=== PATIENT | female | born 1975 | race Caucasian/White ===

== ENCOUNTER 2019-11-16 07:00 | Outpatient (CLI) | payer MEDICAID ==
[2019-11-17 21:52] LABS: TRICHOMONAS VAGINALIS DNA NEGATIVE (NEGATIVE)
[2019-11-18 01:53] LABS: CANDIDA GROUP DNA NEGATIVE (NEGATIVE); CANDIDA KRUSEI DNA NEGATIVE (NEGATIVE); TRICHOMONAS VAGINALIS DNA NEGATIVE (NEGATIVE)
== END 2019-11-16 23:59 | disposition home or self-care (01) ==
LOC: LAB.R 07:00
PROVIDERS: ATTEND Advanced Practice Midwife
DX: Z01.419 Encounter for gynecological examination (general) (routine) without abnormal findings (principal); Z11.3 Encounter for screening for infections with a predominantly sexual mode of transmission; N76.0 Acute vaginitis
CPT/HCPCS: 87491; 87591; 87661; 87801

== ENCOUNTER 2020-01-01 09:14 | Outpatient (CLI) | payer MEDICAID ==
--- NOTE | 2020-01-05 09:41 | Mammography Report ---
BILATERAL DIGITAL SCREENING MAMMOGRAM 3D/2D: 01/01/2020 CLINICAL: Routine screening. Baseline exam. No prior exams were available for comparison. The tissue of both breasts is heterogeneously dense. T his may lower the sensitivity of mammography. No significant masses, calcifications, or other findings are seen in either breast. IMPRESSION: NEGATIVE There is no mammographic evidence of malignancy. A 1 year screening mammogram is recommended. This exam was interpreted at Station ID: [id number]. NOTE: For mammograms, a report in lay terms will be sent to the patient. Approximately 15% of breast malignancies will not be visualized mammographically. In the management of a palpable breast mass, a negative mammogram must not discourage biopsy of a clinically suspicious lesion. Electronically Signed By: Sam Robert M.D., jr/kevyn:01/01/2020 10:10:41 ACR BI-RADS Category 1: Negative 3341F PARENCHYMAL PATTERN: (D) - The breast(s) demonstrate(s) heterogeneously dense fibroglandular ruchi hidalgo. BI-RADS CATEGORY: (1) - 1 RECOMMENDATION: (ANNUAL) - Recommend routine annual screening mammography. 20210101 1 year screening LATERALITY: (B)
== END 2020-01-01 09:15 | disposition home or self-care (01) ==
LOC: DI 09:14
PROVIDERS: ATTEND Advanced Practice Midwife
DX: Z12.31 Encounter for screening mammogram for malignant neoplasm of breast (principal)
CPT/HCPCS: 77063; 77067

== ENCOUNTER 2020-10-28 08:00 | Outpatient (CLI) | payer MEDICAID | END 2020-10-28 23:59 | disposition home or self-care (01) | LOC: LAB.N 08:00 | PROVIDERS: ATTEND Family Medicine | DX: R07.0 Pain in throat (principal) | CPT/HCPCS: 87070; 87077 ==

== ENCOUNTER 2021-03-10 07:00 | Outpatient (CLI) | payer MEDICAID ==
[2021-03-10 19:14] LABS: BACTERIAL VAGINOSIS DNA POSITIVE (NEGATIVE); CANDIDA GLABRATA DNA NEGATIVE (NEGATIVE); CANDIDA GROUP DNA NEGATIVE (NEGATIVE); CANDIDA KRUSEI DNA NEGATIVE (NEGATIVE); TRICHOMONAS VAGINALIS DNA NEGATIVE (NEGATIVE)
[2021-03-10 20:09] LABS: CHLAMYDIA TRACHOMATIS DNA NEGATIVE (NEGATIVE); NEISSERIA GONORRHOEAE DNA NEGATIVE (NEGATIVE); TRICHOMONAS VAGINALIS DNA NEGATIVE (NEGATIVE)
== END 2021-03-10 23:59 | disposition home or self-care (01) ==
LOC: LAB 07:00
PROVIDERS: ATTEND Nurse Practitioner Obstetrics & Gynecology
DX: N89.8 Other specified noninflammatory disorders of vagina (principal); Z11.3 Encounter for screening for infections with a predominantly sexual mode of transmission
CPT/HCPCS: 87491; 87591; 87661; 87801

== ENCOUNTER 2022-06-07 11:30 | Outpatient (CLI) | payer MEDICAID | END 2022-06-07 23:59 | disposition home or self-care (01) | LOC: LAB 11:30 | PROVIDERS: ATTEND Nurse Practitioner | DX: N64.52 Nipple discharge (principal) | CPT/HCPCS: 36415; 84146; 84439; 84443; 87070; 87077; 87205 ==

== ENCOUNTER 2022-06-07 11:44 | Outpatient (CLI) | payer MEDICAID ==
[2022-06-07 12:22] LABS: THYROID STIMULATING HORMONE 1.5 uIU/mL (0.34-5.60)
[2022-06-07 12:24] LABS: FREE T4 (FREE THYROXINE) 0.83 ng/dL (0.58-1.64)
[2022-06-07 12:28] LABS: PROLACTIN 14.97 ng/mL
== END 2022-06-07 11:45 | disposition home or self-care (01) ==
LOC: LAB 11:44
PROVIDERS: ATTEND Nurse Practitioner
DX: N64.52 Nipple discharge (principal)
CPT/HCPCS: 36415; 84146; 84439; 84443

== ENCOUNTER 2022-06-27 10:04 | Outpatient (CLI) | payer MEDICAID ==
--- NOTE | 2022-06-28 16:59 | Mammography Report ---
BILATERAL DIGITAL DIAGNOSTIC MAMMOGRAM 3D/2D: 06/27/2022 CLINICAL: Nipple discharge, both breasts, not bloody. Palpable right breast lump. Comparison is made to exam dated: 01/01/2020 mammogram - [facility]. Both breasts are extremely dense, which lowers the sensitivity of mammography (category d />75% gland ular tissue). No significant masses, calcifications, or other findings are seen in either breast. IMPRESSION: INCOMPLETE: NEEDS ADDITIONAL IMAGING EVALUATION No mammographic evidence of malignancy. A targeted ultrasound of the right breast palpable abnormality is recommended and will immediately fo llow. Patient reports bilateral greenish nipple discharge which is typically benign. Clinical follow-up as needed. Based on Tyrer-Cuzick model (a risk assessment model), the patient's lifetime risk is 21.4% and her 1 0 year risk is 4.1%. If a patient has an elevated risk, a more comprehensive evaluation should be con sidered and/or a referral to a genetic counselor. The [place] [employer], [employer] [employer], and NCCN Guidelines advise the consideration of Breast MRI as an adjunct to screening mammog sujatha in patients whose "Lifetime risk to develop breast cancer" is 20% or higher. This exam was interpreted at Station ID: [id number]. NOTE: For mammograms, a report in lay terms will be sent to the patient. Approximately 15% of breast malignancies will not be visualized mammographically. In the management of a palpable breast mass, a negative mammogram must not discourage biopsy of a clinically suspicious lesion. Electronically Signed By: Mike Segura M.D. slc/:06/27/2022 10:44:38 ACR BI-RADS Category 0: Incomplete 3340F PARENCHYMAL PATTERN: (VD) - The breast(s) demonstrate(s) extremely dense parenchyma, limiting the sen sitivity of mammography. BI-RADS CATEGORY: (0) - 0 Ultrasound [id number] Immediate follow-up LATERALITY: (B)
--- NOTE | 2022-06-28 16:59 | Ultrasound Report ---
LIMITED ULTRASOUND OF RIGHT BREAST: 06/27/2022 CLINICAL: Palpable right breast lump. Comparison is made to exams dated: 06/27/2022 mammogram and 01/01/2020 mammogram - [facility]. Real-time ultrasound of the right breast 10-11 o'clock region was performed. López scale images of th e real-time examination were reviewed. No significant abnormalities were seen sonographically in the right breast in the region of the palpa ble abnormality. IMPRESSION: NEGATIVE There is no sonographic evidence of malignancy. No mass at the palpable abnormality. Exam findings were conveyed to the patient. Patient is advised to monitor for significant change. Cli nical follow-up as needed. A 1 year screening mammogram is recommended. This exam was interpreted at Station ID: [id number]. Electronically Signed By: Mike Segura M.D. slc/:06/27/2022 11:05:48 Ultrasound BI-RADS: 1 Negative BI-RADS CATEGORY: (1) - 1 Mammogram [id number] 1 year screening LATERALITY: (B)
== END 2022-06-27 10:05 | disposition home or self-care (01) ==
LOC: DI 10:04
PROVIDERS: ATTEND Nurse Practitioner
DX: N64.52 Nipple discharge (principal); N63.10 Unspecified lump in the right breast, unspecified quadrant

== ENCOUNTER 2023-02-05 14:48 | Emergency (ER) | payer MEDICAID ==
[2023-02-05 15:12] VITALS: BP 124/80; O2SAT 98
--- NOTE | 2023-02-05 15:59 | ED Physician Documentation ---
PD HPI UPPER EXT INJURY - Stated complaint Stated Complaint: LT HAND LAC - Chief complaint Chief Complaint: Laceration - History obtained from History obtained from: Patient - Additonal information Additional information: Patient is a 47-year-old female with a laceration to her left hand between the first and second digits. Patient was using a chisel To get a piece of candy out of a small candy container when she intently stabbed her cell. Her tetanus is up-to-date as of 2 years ago. Does not take a blood thinner. Review of Systems Skin: reports: Laceration (s) PD PAST MEDICAL HISTORY - Past Surgical History Past Surgical History: No - Present Medications Home Medications: Ambulatory Orders Medication Instructions Recorded Confirmed Azithromycin [Zithromax] 250 mg PO DAILY #4 tablet 03/22/15 guaiFENesin/CODEINE [Robitussin AC] 5 - 10 ml PO Q6H PRN #120 ml 03/22/15 - Allergies Allergies/Adverse Reactions: Allergies Allergy/AdvReac Type Severity Reaction Status Date / Time ampicillin Allergy Rash Verified 03/22/15 03:00 - Social History Does the pt smoke?: Yes Smoking Status: Current every day smoker Does the pt drink ETOH?: Yes Does the pt have substance abuse?: No - Immunizations Immunizations are current?: Yes PD ED PE NORMAL - General General: Alert and oriented X 3, No acute distress, Well developed/nourished - HEENT HEENT: Atraumatic, Moist mucous membranes, Pharynx benign - Neck Neck: Supple, no meningeal sign - Cardiac Cardiac: Strong equal pulses - Extremities Extremities: Other (1 and half centimeter laceration to interdigit space between first and second digits of left hand, normal range of motion at all joints, no swelling) PD ED PE EXPANDED - Extremities GARETH UE/Hands Visual: 1 - laceration Results - Vitals Vitals: Vital Signs - 24 hr 02/05/23 14:56 Temperature 37.4 C Heart Rate 81 Respiratory 18 Rate Blood Pressure 124/80 O2 Saturation 98 Oxygen O2 Source Room air Procedures - Laceration (location) L hand Length in cm: 2 Wound type: Linear, Clean Neurovascular status: Sensory intact, Motor intact, Vascular intact Tendon involvement: Tendon intact Anesthesia: Lidocaine 1% Wound preparation: Hibiclens, Irrigated copiously NS Skin layer closure: Size #-0 - enter number (4-0), Sutures - enter # (3) Other: Patient tolerated well, No complications, Neurovascular intact, Dressing applied, Tetanus UTD PD Medical Decision Making - ED course ED course: Patient with laceration to left hand between first and second digits. Neurovascular intact with no signs of tendon injury. Her tetanus is up-to-date. Wound was irrigated and closed with 3 sutures which patient tolerated well. She is counseled on need to return for suture removal as well as concerning symptoms to return for. No signs of foreign body. Departure - Departure Disposition: 01 Home, Self Care Clinical Impression: Laceration of left hand Condition: Stable Instructions: ED Laceration Ext Sutr Stap Tape Comments: Come back for any signs of infection which would include: Redness, swelling, drainage, increased pain, or fevers. You can wash it soap and water. Keep it covered and moist with bacitracin ointment which is available over the counter; avoid neosporin. Follow-up with your physician in about 10-14 days for suture removal. You have [address] Forms: PCP List Discharge Date/Time: 02/05/23 16:31
== END 2023-02-05 16:31 | disposition home or self-care (01) ==
LOC: ED 14:48
DX: S61.412A Laceration without foreign body of left hand, initial encounter (principal); W27.8XXA Contact with other nonpowered hand tool, initial encounter
CPT/HCPCS: 12001; 99282